=== PATIENT | male | born 1990 | race Caucasian/White ===

== ENCOUNTER 2017-02-16 15:43 | Emergency (ER) | payer BC ==
--- NOTE | 2017-02-16 15:54 | EDPHY ---
H & P HPI/ROS: CHIEF COMPLAINT: Low blood glucose level, disoriented HISTORY OF PRESENT ILLNESS: The patient is a diabetic 26 y/o male arriving via EMS after being found disoriented in a park. Patient was at work when he evidently wandered away and was found in a park near by by coworkers quite disoriented. EMS was contacted. On their arrival the patient's glucose was 27. They gave him D10, which brought his BGL to 155. He is on a continuos glucometer that measures his BGL. He is compliant with his medications and is on a sliding scale for his insulin. The patient reports that the past 2 weeks, his BGL has been running high. He has been under more stress recently and has been eating more processed foods. After lunch today his BGL was 215; he did not treat this hyperglycemia but only administered NovoLog based on his carbohydrate intake. He then did note after lunch being advised that he had a glucose of 60 from his monitor. Denies drinking alcohol in the past week. Denies history of alcohol withdrawal symptoms. No fever, chills, chest pain, shortness of breath, cough, palpitations , vomiting, diarrhea, urinary complaints, headache, lightheadedness. REVIEW OF SYSTEMS: Aside from elements discussed in the HPI, a comprehensive 10-point review of systems was reviewed and is negative. PAST MEDICAL HISTORY: Diabetes, encephalitis, bacterial meningitis SOCIAL HISTORY: at bedside, moved to [place] from [place] last week, works at [employer] VITAL SIGNS: BP: 169/80, others reviewed by me as normal GENERAL: Pleasant, well-developed, well-nourished, resting comfortably in no respiratory distress. HEENT: Atraumatic. Eyes: No icterus, no injection. Mouth: moist mucous membranes. No erythema or lesions. Neck: supple with no adenopathy. LUNGS: Clear to auscultation bilaterally, no wheezes, rhonchi or rales. CARDIAC: Regular rate and rhythm, no rubs, murmurs or gallops. ABDOMEN: Soft, nontender, nondistended, bowel sounds normal. BACK: No CVA tenderness. EXTREMITIES: No trauma. No edema. Range of motion is normal throughout. NEURO: Alert and oriented, grossly nonfocal. SKIN: Clammy, no rash. PSYCHIATRIC: Normal mentation, no agitation. Portions of this note were transcribed by a medical accounts receivable specialist. I personally performed a history, physical exam, medical decision making, and confirmed accuracy of information the transcribed note. Constitutional: Initial Vital Signs Temperature (C) 36.7 C 02/16/17 16:03 Heart Rate 82 02/16/17 16:03 Respiratory Rate 18 02/16/17 16:03 Blood Pressure 169/80 H 02/16/17 16:03 O2 Sat (%) 98 02/16/17 16:03 O2 Delivery Mode Room Air Allergies/Adverse Reactions: Penicillins Allergy (Verified 02/16/17 16:02) Home Medications: Medication Instructions Recorded Insulin Aspart [Novolog Flexpen] 5 - 15 unit SQ QID #20 [email or web address] 02/16/17 Levemir 02/16/17 novoLOG 02/16/17 Medical Decision Making ED Course/Re-evaluation: The patient is a diabetic 26 y/o male arriving via EMS after being found disoriented and with a BGL of 27. He is on a continuous glucometer and uses a sliding scale for administering his insulin. At lunch he had a BGL reading of 215, but only treated himself for the amount of carbohydrates he ate. I reviewed his last 6 hours of BGL readings, which have been inconsistent. On exam he is clammy, but there are no remarkable findings. IV was established as the patient had blood drawn. Patient is resting comfortably. 1700: Advised by the lab that the patient's blood glucose is 34. This is from blood which was drawn at the time of the patient's arrival. Patient's glucometer at the time of his arrival in the emergency department was 187. Repeat I-STAT was obtained. Glucose is 47; patient's glucometer reading at that time was 67. 170: Reassessed patient and discussed laboratory findings and inconsistencies of his glucose levels and glucose readings. Of most concern is that the patient 's glucose at the time of his arrival to the emergency department, by laboratory analysis, was 32 whereas the patient's glucometer reading at that time was 187. Patient was given a sandwhich. He was observed. 181: Patient's BGL is 133 1920: Repeat glucose 181. Discussed with the patient that he needs to be utilizing an alternative method to measure his BGL. Provided with outpatient follow-up referrals including referral to Endocrinology as well as primary care physician. Please see the discharge instructions. Discharged with his . They understand that he needs to allow permissive hyperglycemia for the time being. Differential Diagnosis: After the history was obtained and physical exam performed, the following differential for the patient's altered mental status and hypoglycemia was considered included but was not limited to insulin overdose, inappropriate insulin administration, acute renal failure, dehydration, electrolyte abnormalities, intentional insulin overdose, drug or alcohol intoxication, drug or alcohol abuse, drug or alcohol withdrawal, TIA, stroke, aspirin overdose. - Data Points Laboratory Results: Laboratory Results 02/16/17 16:00 02/16/17 16:00 02/16/17 02/16/17 02/16/17 19:09 18:08 16:51 WBC RBC Hgb POC Hgb 13.9 gm/dL gm/dL 13.9 gm/dL gm/dL (13.7-17.5) (13.7-17.5) Hct POC Hct 41 % % 41 % % (40-51) (40-51) MCV MCH MCHC RDW Plt Count MPV Neut % (Auto) Lymph % (Auto) Mcmullen % (Auto) Eos % (Auto) Baso % (Auto) Nucleat RBC Rel Count Absolute Neuts (auto) Absolute Lymphs (auto) Absolute Monos (auto) Absolute Eos (auto) Absolute Basos (auto) Absolute Nucleated RBC Immature Gran % Immature Gran # POC Sodium 142 mEq/L mEq/L 143 mEq/L mEq/L (134-144) (134-144) Sodium POC Potassium 3.6 mEq/L mEq/L 3.5 mEq/L mEq/L (3.3-5.0) (3.3-5.0) Potassium POC Chloride 105 mEq/L mEq/L 105 mEq/L mEq/L (97-110) (97-110) Chloride Carbon Dioxide Anion Gap POC BUN 16 mg/dL mg/dL 15 mg/dL mg/dL (7-23) (7-23) BUN Creatinine POC Creatinine 0.7 mg/dL mg/dL 0.8 mg/dL mg/dL (0.7-1.3) (0.7-1.3) Estimated GFR Glucose POC Glucose 180 mg/dL H mg/dL 133 mg/dL H mg/dL 47 mg/dL L mg/dL (70-100) (70-100) (70-100) Calcium Total Bilirubin Conjugated Bilirubin Unconjugated Bilirubin AST ALT Alkaline Phosphatase Total Protein Albumin Lipase 02/16/17 02/16/17 16:00 16:00 WBC 12.71 10^3/uL H 10^3/uL (3.80-9.50) RBC 5.59 10^6/uL 10^6/uL (4.40-6.38) Hgb 16.1 g/dL g/dL (13.7-17.5) POC Hgb Hct 46.1 % % (40.0-51.0) POC Hct MCV 82.5 fL fL (81.5-99.8) MCH 28.8 pg pg (27.9-34.1) MCHC 34.9 g/dL g/dL (32.4-36.7) RDW 12.8 % % (11.5-15.2) Plt Count 359 10^3/uL 10^3/uL (150-400) MPV 10.1 fL fL (8.7-11.7) Neut % (Auto) 81.6 % H % (39.3-74.2) Lymph % (Auto) 10.9 % L % (15.0-45.0) Mcmullen % (Auto) 6.5 % % (4.5-13.0) Eos % (Auto) 0.3 % L % (0.6-7.6) Baso % (Auto) 0.4 % % (0.3-1.7) Nucleat RBC Rel Count 0.0 % % (0.0-0.2) Absolute Neuts (auto) 10.37 10^3/uL H 10^3/uL (1.70-6.50) Absolute Lymphs (auto) 1.39 10^3/uL 10^3/uL (1.00-3.00) Absolute Monos (auto) 0.82 10^3/uL H 10^3/uL (0.30-0.80) Absolute Eos (auto) 0.04 10^3/uL 10^3/uL (0.03-0.40) Absolute Basos (auto) 0.05 10^3/uL 10^3/uL (0.02-0.10) Absolute Nucleated RBC 0.00 10^3/uL 10^3/uL (0-0.01) Immature Gran % 0.3 % % (0.0-1.1) Immature Gran # 0.04 10^3/uL 10^3/uL (0.00-0.10) POC Sodium Sodium 141 mEq/L mEq/L (134-144) POC Potassium Potassium 4.2 mEq/L mEq/L (3.5-5.2) POC Chloride Chloride 101 mEq/L mEq/L (97-110) Carbon Dioxide 29 mEq/l mEq/l (22-31) Anion Gap 11 mEq/L mEq/L (8-16) POC BUN BUN 16 mg/dL mg/dL (7-23) Creatinine 0.8 mg/dL mg/dL (0.7-1.3) POC Creatinine Estimated GFR > 60 Glucose 34 mg/dL L* mg/dL (70-100) POC Glucose Calcium 9.7 mg/dL mg/dL (8.5-10.4) Total Bilirubin 1.1 mg/dL mg/dL (0.1-1.4) Conjugated Bilirubin 0.1 mg/dL mg/dL (0.0-0.5) Unconjugated Bilirubin 1.0 mg/dL mg/dL (0.0-1.1) AST 31 IU/L IU/L (17-59) ALT 37 IU/L IU/L (21-72) Alkaline Phosphatase 56 IU/L IU/L (38-126) Total Protein 7.4 g/dL g/dL (6.3-8.2) Albumin 4.8 g/dL g/dL (3.5-5.0) Lipase 80 IU/L IU/L (23-300) Medications Given: Discontinued Medications Sodium Chloride (Ns) 1,000 mls @ 0 mls/hr IV ONCE ONE; Wide Open PRN Reason: Protocol Stop: 02/16/17 15:58 Last Admin: 02/16/17 16:30 Dose: 1,000 mls Point of Care Test Results: 02/16/17 02/16/17 02/16/17 16:51 18:08 19:09 POC Sodium 143 142 POC Potassium 3.5 3.6 POC Chloride 105 105 POC BUN 15 16 POC Creatinine 0.8 0.7 POC Glucose 47 L 133 H 180 H Departure - Departure Disposition: Home, Routine, Self-Care Clinical Impression: Hypoglycemia due to insulin Condition: Good Instructions: Hypoglycemia in a Person with Diabetes (ED) Additional Instructions: It appears that your current monitor is not providing adequate glucose readings. Please use an alternative means of measuring your glucose levels. I would allow permissive hyperglycemia for the next several days. You been given referral to outpatient family practitioner who was on-call for us today for unassigned patients. You may also establish care at [facility] with 1 of their primary care physicians. Referrals: Patient,NotPresent [Unknown] - As per Instructions Telly Redd MD [Medical Doctor] - As per Instructions (Dr. Redd is in v groove cutter.) Nicole Lopez MD [[facility] Primary Care Provider] - As per Instructions (Dr. Lopez is an v groove cutter) Amor Jones MD [Medical Doctor] - As per Instructions (Dr. Jones is an internal medicine physician on-call for unassigned patients.) Stand Alone Forms: Work Excuse Prescriptions: Insulin Aspart [Novolog Flexpen] 5 - 15 unit SQ QID #20 [email or web address] Report Scribed for: Julisa Beltrán Report Scribed by: Magaly Taylor Date of Report: 02/16/17 Time of Report: 16:17
[2017-02-16] MEDS ORDERED: NS 1,000 ML IV ONE (15:57)
[2017-02-16 16:29] LABS: % IMMATURE GRANULYOCYTES 0.3 % (0.0-1.1); ABSOLUTE IMMATURE GRANULOCYTES 0.04 10^3/uL (0.00-0.10); ADD DIFF? NO; ADD MORPH? NO; ADD SCAN? NO; ATYPICAL LYMPHOCYTE FLAG 0 (0-99); FRAGMENT RBC FLAG 0 (0-99); HEMATOCRIT 46.1 % (40.0-51.0); HEMOGLOBIN 16.1 g/dL (13.7-17.5); LEFT SHIFT FLG 0 (0-99); LIPEMIA HEMOLYSIS FLAG 90 (0-99); MEAN CELL HEMOGLOBIN 28.8 pg (27.9-34.1); MEAN CELL HEMOGLOBIN CONCENTR. 34.9 g/dL (32.4-36.7); MEAN CELL VOLUME 82.5 fL (81.5-99.8); MEAN PLATELET VOLUME 10.1 fL (8.7-11.7); PLATELET CLUMPS FLAG 0 (0-99); PLATELET COUNT 359 10^3/uL (150-400); RED BLOOD CELL COUNT 5.59 10^6/uL (4.40-6.38); RED CELL DISTRIBUTION WIDTH 12.8 % (11.5-15.2)
[2017-02-16 16:44] LABS: ALANINE AMINOTRANSFERASE 37 IU/L (21-72); ALBUMIN 4.8 g/dL (3.5-5.0); ALKALINE PHOSPHATASE 56 IU/L (38-126); ANION GAP 11 mEq/L (8-16); ASPARTATE AMINOTRANSFERASE 31 IU/L (17-59); BILIRUBIN,TOTAL 1.1 mg/dL (0.1-1.4); BILIRUBIN-CONJUGATED 0.1 mg/dL (0.0-0.5); CALCIUM 9.7 mg/dL (8.5-10.4); CARBON DIOXIDE 29 mEq/l (22-31); CHLORIDE 101 mEq/L (97-110); CREATININE 0.8 mg/dL (0.7-1.3); GLOMERULAR FILTRATION RATE > 60; POTASSIUM 4.2 mEq/L (3.5-5.2); SODIUM 141 mEq/L (134-144); TOTAL PROTEIN 7.4 g/dL (6.3-8.2)
[2017-02-16 16:54] LABS: GLUCOSE 34 mg/dL (70-100)
[2017-02-16 18:25] VITALS: RESP 16
[2017-02-16 19:49] VITALS: BP 128/92; PULSE 80; TEMP 98.4; O2SAT 96
== END 2017-02-16 19:49 | disposition home or self-care (01) ==
DX: E11.649 Type 2 diabetes mellitus with hypoglycemia without coma (principal); E86.9 Volume depletion, unspecified; Z79.4 Long term (current) use of insulin
CPT/HCPCS: 82947-QW